=== PATIENT | female | born 1980 | race Caucasian/White ===

== ENCOUNTER 2019-02-12 06:50 | Day surgery (SDC) | payer BC ==
[2019-02-09 14:48] LABS: Urine Appearance CLOUDY; Urine Bilirubin NEGATIVE (NEG); Urine Blood NEGATIVE (NEG); Urine Color YELLOW; Urine Glucose NEGATIVE (NEG); Urine Protein NEGATIVE (NEG); Urine Specific Gravity 1.025 (1.005-1.030); Urine Urobilinogen 0.2 mg/dL (0.2-1.0)
[2019-02-09 14:50] LABS: Urine Microscopic Reflex NO UMIC
[2019-02-09 14:50] LABS: Absolute Lymphocytes (CBC) 1.7 K/uL (0.7-4.9); Hematocrit 41.5 % (36.0-45.0); Lymphocytes % 29.9 % (15.3-44.8); MPV 9.2 fL (7.6-11.3); RBC Red Blood Cell Count 4.84 M/uL (3.86-4.86)
[2019-02-12 07:11] LABS: Specific Gravity 1.015 (1.005-1.030)
[2019-02-12] MEDS ORDERED: Ringers Lactate 1,000 ML IV ONE ×3 (07:11→10:59)
[2019-02-12] MEDS ORDERED: CEFAZOLIN/SWI 2gm 2 GM/20 ML SYR ONE (07:11)
[2019-02-12] MEDS ORDERED: SCOPOLAMINE HYDROBROMIDE PATCH TD ONE (07:11)
[2019-02-12] MEDS ORDERED: PROPOFOL 200 MG/20 ML VIAL IV ONE (08:04)
[2019-02-12] MEDS ORDERED: MIDAZOLAM HCL 2 MG/2 ML INJ ONE (08:04)
[2019-02-12] MEDS ORDERED: ROCURONIUM 50 MG/5 ML VIAL IV ONE (08:04)
[2019-02-12] MEDS ORDERED: LIDOCAINE 2% MPF 5 ML VIAL ONE (08:04)
[2019-02-12] MEDS ORDERED: FENTANYL CITR 250 MCG/5 ML ONE (08:04)
[2019-02-12] MEDS ORDERED: dexAMETHasone 10 MG/ML VIAL ONE (08:04)
[2019-02-12] MEDS ORDERED: ONDANSETRON 4 MG/2 ML VIAL ONE ×2 (08:06→12:20)
[2019-02-12] MEDS ORDERED: BUPIVACAINE 0.25% PF 10 ML VIAL ONE ×2 (08:45→09:16)
[2019-02-12] MEDS ORDERED: KETOROLAC 30 MG/ML INJ ONE (11:07)
[2019-02-12] MEDS: HYDROMORPHONE HCL 1 MG/ML INJ ONE ×2 (12:16→12:47)
[2019-02-12] MEDS ORDERED: PROMETHAZINE 25 MG/ML VIAL ONE (14:36)
[2019-02-12 15:49] VITALS: TEMP 98.5
[2019-02-12] MEDS ORDERED: HYDROCODONE/APAP 5/325 MG TAB ONE (16:07)
[2019-02-12 17:18] VITALS: BP 100/58; O2SAT 99
--- NOTE | 2019-02-14 02:51 | OP ---
Date of Procedure: 02/12/2019 Surgeon: Maria Isabel Prieto MD Chief Security And Safety Officer: Karen Bridges. Preoperative Diagnoses: Cervical intraepithelial neoplasia-3; history of menorrhagia; status post ab lation; Asherman, and left hydrosalpinx. Postoperative Diagnoses: Cervical intraepithelial neoplasia-3; history of menorrhagia; status post a blation; Asherman, left hydrosalpinx; bilateral hematosalpinges; endometriosis. Anesthesia: General endotracheal. Specimens: Uterus, bilateral tubes, and endometriosis of the right lower quadrant. Other endometrio sis was included along with the uterine specimen. There was small amount of endometriosis left at th e right lateral posterior part of the cuff immediately lateral to the attachment of the uterosacral l igament. This was a difficult place for removal of this endometriosis. It was cauterized with the h elp of the LigaSure, not removed due to all the adhesions from her prior sections. Lysis of section adhesions. Procedure Performed: Total laparoscopic hysterectomy, bilateral salpingectomy, endometriosis treatme nt, lysis of bladder adhesions, which took an extensive amount of time, and cystoscopy. Findings: The uterus was adhered starting at the level of the tube on 1 side to the level of the rou nd ligament on opposite sides and the bladder adhesions were at multiple levels due to her 3 sections. This was most difficult part of the surgery and took more than half of the time of the en tire duration of the surgery. Endometriosis was present close to cuff on the lateral aspects of the posterior broad ligament, which included the uterus after excising them laterally and pulling the spe cimen medial and then in the right lower quadrant it was excised with the help of the scissors and Li gaSure completely from its base. Both ovaries were normal on cystoscopy. Both ureters were patent. No evidence of any trauma to the bladder. Both tubes had hematosalpinges. The patient was worked up for an abnormal Pap smear on colposcopy and ECC. She was found to have ALBAN -3, which is discrepant from her Pap smear. Discussed about the options of observation with followup Pap smear in 36 months versus cold knife cone, LEEP with top hat. All these were discussed with the patient as well as a hysterectomy. She has completed childbearing, went through an ablation for hea vy bleeding and pain. She had endometriosis removal in the past as well. Although patient is amenor rheic now and had no pain, she preferred to proceed with a hysterectomy. Description Of Procedure: After consenting her for this procedure, 2 g of Ancef was given in the pre op. Patient was taken back to the surgery and was taken to the OR, placed in supine fashion on the o perating table. After general anesthesia was given, she was placed in dorsal lithotomy position in A llen stirrups. Abdomen, vulva, vagina, and perineum were prepped and draped in a sterile fashion. F oley was placed to drain the bladder and attached to cysto tubing for retrograde filling. A large cu p uterine manipulator device was introduced into the uterine cavity, but I could advance it only to 5 .5 cm, which is probably only the lower part of the endometrial canal. However, due to her severe As matthieu syndrome, we were unable to advance it any further. This was left in place, cup fixed in plac e. 1 cm periumbilical incision was made with a scalpel using open laparoscopy technique. Fascia was inc ised, cut, tagged with 0 Vicryl sutures. Kaitlin was placed after directly entering into the peritone al cavity. Insufflation was done. Upper abdominal surface was completely unremarkable. Lower abdom inal surfaces were visualized, and there were hematosalpinges on both sides, left more than the right . So, plan was to remove both tubes starting in the mesosalpinx to the level of the hematosalpinx. Dissection was performed medially towards its cornual end. Utero-ovarian ligament was taken down. R ound ligament was taken down on the left side. Then, gently the peritoneum was opened up between the round ligament and the adhesions of the bladder. It was carefully taken down in a [id number] fash ion going slow at the level of the layers with push-spread technique making windows and cutting it al l the way down to the lateral aspect of the uterus. Then, posterior peritoneum was taken down to the left uterosacral and the broad ligament was already skeletonized by the time I had performed dissect ion. On the opposite side, similar dissection was performed to open up the lateral wall and taking t he proximal part of the tube with the uterine cavity along with the uterine body. Once the broad lig ament was entered posteriorly and brought to the right uterosacral anteriorly, careful dissection had to be performed back on the opposite side and taken down all the way to the level of the uterine ves sels and the broad ligament was skeletonized. Then, once I got into the lateral dissection plane, __ rest of the bladder was taken. The vessels were taken with the LigaSure and the basket tip pulled on both sides. Cardinal ligaments were taken down. Circumferential colpotomy with monopolar hook blade was performed. The specimens were retrieved through the vagina. Distal parts of both tub es were also removed and handed for permanent pathology. Then, 2-0 V-Loc suture was taken with the k not tied at the end. Then, incision closure was started at the right lateral aspect of the cuff. Cu ff closure was done in 2 layers, 1 was vaginal epithelial subepithelial layer including the collagen matrix and the first layer from [id number] and then imbricating the first line with the help of th e same 2-0 V-Loc suture going through the rectovaginal fascia, pubic cervical fascia posteriorly and anteriorly respectively. Entire closure was performed all the way and then backtracked 2 more suture s for rewind on the V-Loc. Once this was done, there was excellent hemostasis. The suture was cut v kristofer flush. Excellent support in closure. Uterosacrals were made sure that they were included back i n the closure. Then, both ovaries were healthy and vascular. Thorough irrigation and suction were p erformed. Shady for retraction of the bowel and this was released and there was no hematoma here. After all the trocars were pulled out, Marcaine was injected. Fascia at the umbi licus was closed with the help of a [id number] 0 Vicryl suture and then simple 0 Vicryl stitches . On the skin, suprapubic incision at fascial site closed with simple 3-0 Vicryl, and 4-0 Vicryl int errupted on the rest of the places. VCare and Alex were removed. A 17-Guinean sheath, 30-degree ari s, normal saline was used for distention and both ureteric orifices were well visualized. Strong jet s of urine from them. No foreign body and no damage to the bladder was noted at the dome and the are a of the trigone and above the level of the trigone. Then, bladder was drained out. Instrument, nee dle, and sponge counts were done and were correct at the end of the case. EBL 60. Patient tolerated the procedure well. GRACY/HUBERT Voice ID: [id number] Report ID: [id number]
== END 2019-02-12 17:00 | disposition home or self-care (01) ==
LOC: OR 06:50
PROVIDERS: ATTEND Obstetrics & Gynecology
PROC: 0UT74ZZ Resection of Bilateral Fallopian Tubes, Percutaneous Endoscopic Approach (ICD-10-PCS; 2019-02-12)
PROC: 0TNB4ZZ Release Bladder, Percutaneous Endoscopic Approach (ICD-10-PCS; 2019-02-12)
PROC: 0UB44ZZ Excision of Uterine Supporting Structure, Percutaneous Endoscopic Approach (ICD-10-PCS; 2019-02-12)
PROC: 0DBW4ZZ Excision of Peritoneum, Percutaneous Endoscopic Approach (ICD-10-PCS; 2019-02-12)
PROC: 0UT94ZZ Resection of Uterus, Percutaneous Endoscopic Approach (ICD-10-PCS; principal; 2019-02-12 08:00)
DX: D06.9 Carcinoma in situ of cervix, unspecified (principal); N70.11 Chronic salpingitis; N85.6 Intrauterine synechiae; N83.6 Hematosalpinx; N80.3 Endometriosis of pelvic peritoneum; N32.89 Other specified disorders of bladder; F32.9 Major depressive disorder, single episode, unspecified; R87.810 Cervical high risk human papillomavirus (HPV) DNA test positive; Z88.6 Allergy status to analgesic agent; Z88.8 Allergy status to other drugs, medicaments and biological substances; Z80.3 Family history of malignant neoplasm of breast; Z80.0 Family history of malignant neoplasm of digestive organs; Z82.3 Family history of stroke; Z83.3 Family history of diabetes mellitus
CPT/HCPCS: 58571; 53899; 58662; 85025; 36415; 86900; 86850; 81025; 86901; 88305; 88307; 81003; J2704; J2550; J2250; J3010; J1100; J1170; J0690; J7120 ×3; J2405 ×2

== ENCOUNTER 2020-08-22 09:19 | Emergency (ER) | payer BC ==
[2020-08-22 10:04] LABS: Urine Blood Negative (Negative); Urine Glucose Negative (Negative); Urine Protein Negative (Negative); Urine Specific Gravity >=1.030 (1.005-1.030); Urine pH 5.5 (5.0-7.0)
[2020-08-22 10:12] LABS: Absolute Lymphocytes (CBC) 1.4 K/uL (0.7-4.9); Basophils % 0.8 % (0-1.3); Hematocrit 39.9 % (36.0-45.0); Lymphocytes % 22.6 % (15.3-44.8); MPV 9.3 fL (7.6-11.3); RBC Red Blood Cell Count 4.72 M/uL (3.86-4.86)
[2020-08-22] MEDS ORDERED: NA CHLORIDE 0.9% 1,000 ML ONE (10:13)
[2020-08-22] MEDS ORDERED: ONDANSETRON 4 MG/2 ML VIAL ONE (10:13)
[2020-08-22] MEDS ORDERED: MORPHINE 4 MG/ML SYR ONE (10:13)
[2020-08-22 10:20] LABS: Albumin 3.5 g/dL (3.4-5.0); Bilirubin Direct 0.2 mg/dL (0-0.2); Bilirubin Total 0.8 mg/dL (0.2-1.0); Potassium 3.9 mmol/L (3.5-5.1); Protein, Total 6.9 g/dL (6.4-8.2)
[2020-08-22 10:33] LABS: Urine Bacteria <20 /HPF (<20); Urine RBC NONE SEEN /HPF (NONE SEEN)
[2020-08-22 10:33] LABS: Urine Specific Gravity/Preg >1.030 (1.005-1.030)
[2020-08-22 10:34] LABS: Urine Mucus LIGHT /HPF (NONE SEEN)
--- NOTE | 2020-08-22 10:54 | RAD REPORT ---
EXAM DESCRIPTION: CT - Abdomen Pelvis W Contrast - 08/22/2020 10:33 am CLINICAL HISTORY: Abdominal pain COMPARISON: none. TECHNIQUE: Computed axial tomography of the abdomen pelvis was obtained. 100 cc Isovue-300 was admin istered intravenously. Oral contrast was not requested which limits evaluation of bowel. All CT scans are performed using dose optimization technique as appropriate and may include automated exposure control or mA/KV adjustment according to patient size. FINDINGS: Fatty liver 1 centimeter splenic cyst. The pancreas and adrenals are unremarkable. Minimal renal cortical thinning. No hydronephrosis. Hysterectomy. No adnexal mass. No significant free fluid There is no evidence of diverticulitis. Small umbilical hernia IMPRESSION: No acute abnormality is displayed.
--- NOTE | 2020-08-22 11:23 | EDPHYS ---
Physician Documentation [facility] Name: Tiera Joshi Age: 40 yrs Sex: Female : 1980 Arrival Date: 08/22/2020 Time: 09: Bed 18 Private MD: Chase Nayak HPI: 08/22 10:22 This 40 yrs old Female presents to ER via Ambulatory with complaints of pm1 Abdominal Pain. 10:22 The patient presents with abdominal pain in the left lower quadrant. Onset: The pm1 symptoms/episode began/occurred 6 month(s) ago, and became worse yesterday. The symptoms do not radiate. Associated signs and symptoms: none. Pertinent negatives: nausea, vomiting, and diarrhea, chest pain, dysuria, fever, shortness of breath. The symptoms are described as sharp. Modifying factors: The symptoms are alleviated by nothing, the symptoms are aggravated by nothing. Severity of pain: in the emergency department the pain is actually worse. The patient has experienced similar episodes in the past, multiple times. Seen by her DOCK MANAGER and given control pills to help with endometriosis. Has had hysterectomy . 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 - Social history:: Smoking status: Patient reports the use of cigarette tobacco products, denies chronic smoking, but will smoke occasionally. ROS: 10:22 Constitutional: Negative for fever, chills, and weight loss, Cardiovascular: Negative pm1 for chest pain, palpitations, and edema, Respiratory: Negative for shortness of breath, cough, wheezing, and pleuritic chest pain. 10:22 Back: Negative for injury and pain, MS/Extremity: Negative for injury and deformity, Skin: Negative for injury, rash, and discoloration, Neuro: Negative for headache, weakness, numbness, tingling, and seizure. 10:22 : Negative for injury, bleeding, discharge, and swelling. 10:22 Abdomen/GI: Positive for abdominal pain, Negative for nausea, vomiting, and diarrhea, constipation. Exam: 10:22 Constitutional: This is a well developed, well nourished patient who is awake, alert, pm1 and in no acute distress. Head/Face: Normocephalic, atraumatic. 10:22 Back: No spinal tenderness. No costovertebral tenderness. Full range of motion. 10:22 Skin: Warm, dry with normal turgor. Normal color with no rashes, no lesions, and no evidence of cellulitis. MS/ Extremity: Pulses equal, no cyanosis. Neurovascular intact. Full, normal range of motion. 10:22 Cardiovascular: Exam negative for acute changes, Rate: normal, Rhythm: regular, Pulses: no pulse deficits are appreciated. 10:22 Respiratory: Exam negative for acute changes, respiratory distress, shortness of breath, Breath sounds: are clear throughout. 10:22 Abdomen/GI: Inspection: obese Palpation: soft, in all quadrants, mild abdominal tenderness, in the left lower quadrant. 10:22 Neuro: Orientation: is normal, Mentation: is normal, Motor: is normal, moves all fours. Vital Signs: 09:41 BP 137 / 81; Pulse 75; Resp 17 S; Temp 97.8(O); Pulse Ox 100% on R/A; Weight 99.79 kg jd3 (R); Height 5 ft. 3 in. (160.02 cm) (R); Pain 7/10; 10:08 BP 112 / 52; Pulse 58; Resp 17 S; Pulse Ox 100% on R/A; jd3 09:41 Body Mass Index 38.97 (99.79 kg, 160.02 cm) jd3 MDM: 09:26 Patient medically screened. pm1 11:22 Data reviewed: vital signs. Data interpreted: Pulse oximetry: on room air is 100 %. pm1 Interpretation: normal. Counseling: I had a detailed discussion with the patient and/or guardian regarding: the historical points, exam findings, and any diagnostic results supporting the discharge/admit diagnosis, lab results, radiology results, the need for outpatient follow up, for definitive care, an OB/Gyne specialist, to return to the emergency department if symptoms worsen or persist or if there are any questions or concerns that arise at home. 08/22 09:39 Order name: Basic Metabolic Panel pm1 08/22 09:39 Order name: CBC with Diff pm1 08/22 09:39 Order name: Hepatic Function; Complete Time: 10:22 pm1 08/22 09:39 Order name: Lipase; Complete Time: 10:22 pm1 08/22 09:39 Order name: Urine Microscopic Only; Complete Time: 10:52 pm1 08/22 09:40 Order name: Basic Metabolic Panel; Complete Time: 10:22 EDMS 08/22 09:39 Order name: IV Saline Lock; Complete Time: 09:51 pm1 08/22 09:39 Order name: CT Abd/Pelvis - IV Contrast Only; Complete Time: 10:55 pm1 08/22 09:40 Order name: CBC with Automated Diff; Complete Time: 10:17 EDMS 08/22 10:03 Order name: Urine --Ancillary (enter results); Complete Time: 10:52 bd 08/22 10:04 Order name: Urine Dipstick-Ancillary; Complete Time: 10:17 EDMS 08/22 09:39 Order name: Labs collected and sent; Complete Time: 09:51 pm1 08/22 09:39 Order name: Urine Dipstick-Ancillary (obtain specimen); Complete Time: 10:03 pm1 08/22 09:39 Order name: Urine Test (obtain specimen); Complete Time: 10:03 pm1 Administered Medications: 10:02 Drug: Zofran (Ondansetron) 4 mg Route: IVP; Site: right antecubital; jd3 10:03 Drug: NS 0.9% 1000 ml Route: IV; Rate: 1000 ml; Site: right antecubital; jd3 10:03 Drug: morphine 4 mg Route: IVP; Site: right antecubital; jd3 Disposition: 08/22/20 11:23 Discharged to Home. Impression: Unspecified abdominal pain. - Condition is Stable. - Discharge Instructions: Abdominal Pain, Adult. - Prescriptions for Tylenol- Codeine #3 300-30 mg Oral Tablet - take 2 tablets by ORAL route every 4-6 hours As needed; 20 tablet. - Medication Reconciliation Form, Thank You Letter, Antibiotic Education, Prescription Opioid Use form. - Follow up: Emergency Department; When: As needed; Reason: Worsening of condition. Follow up: Private Physician; When: 2 - 3 days; Reason: Recheck today's complaints, Continuance of care, Re-evaluation by your physician. - Problem is new. - Symptoms have improved. Addendum: 08/24/2020 06:39 Co-signature as Attending Physician, Chase Heaton MD I agree with the assessment and c de la fuente plan of care. Signatures: Dispatcher [employer] EDAK Chase Heaton MD MD cha Williams, Irene, RN RN iw Maury Key, TRANSCRIBING MACHINE MECHANIC TRANSCRIBING MACHINE MECHANIC pm1 Jas Montes RN RN jd3 Corrections: (The following items were deleted from the chart) 08/22 12:16 11:23 08/22/2020 11:23 Discharged to Home. Impression: Unspecified abdominal pain. iw Condition is Stable. Forms are Medication Reconciliation Form, Thank You Letter, Antibiotic Education, Prescription Opioid Use. Follow up: Emergency Department; When: As needed; Reason: Worsening of condition. Follow up: Private Physician; When: 2 - 3 days; Reason: Recheck today's complaints, Continuance of care, Re-evaluation by your physician. Problem is new. Symptoms have improved. pm1
--- NOTE | 2020-08-22 11:23 | ER ---
Nurse's Notes [facility] Name: Tiera Joshi Age: 40 yrs Sex: Female : 1980 Arrival Date: 08/22/2020 Time: 09:22 Bed 18 Private MD: Diagnosis: Unspecified abdominal pain Presentation: 08/22 09:30 Chief complaint: Patient states: hx of endometriosis , has had more intense pain to [facility] iw since last night. Coronavirus screen: At this time, the client does not indicate any symptoms associated with coronavirus-19. Ebola Screen: Patient negative for fever greater than or equal to 101.5 degrees Fahrenheit, and additional compatible Ebola Virus Disease symptoms Patient denies exposure to infectious person. Patient denies travel to an Ebola-affected area in the 21 days before illness onset. No symptoms or risks identified at this time. Initial Sepsis Screen: Does the patient meet any 2 criteria? No. Patient's initial sepsis screen is negative. Does the patient have a suspected source of infection? No. Patient's initial sepsis screen is negative. Risk Assessment: Do you want to hurt yourself or someone else? Patient reports no desire to harm self or others. Onset of symptoms was August 21, 2020. 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 - Social history:: Smoking status: Patient reports the use of cigarette tobacco products, denies chronic smoking, but will smoke occasionally. Screenin:44 Abuse screen: Denies threats or abuse. Nutritional screening: No deficits noted. jd3 Tuberculosis screening: No symptoms or risk factors identified. Fall Risk Ambulatory Aid- None/Bed Rest/Nurse Assist (0 pts). Gait- Normal/Bed Rest/Wheelchair (0 pts) Mental Status- Oriented to own ability (0 pts). Total Cao Fall Scale indicates No Risk (0-24 pts). Assessment: 09:42 General: Appears in no apparent distress. comfortable, Behavior is calm, cooperative, jd3 appropriate for age. Pain: Complains of pain in suprapubic area and left lower quadrant Quality of pain is described as crampy, tender. Neuro: Level of Consciousness is awake, alert, obeys commands, Oriented to person, place, time, situation. Cardiovascular: Denies chest pain, Capillary refill < 3 seconds Patient's skin is warm and dry. Respiratory: Airway is patent Respiratory effort is even, unlabored, Respiratory pattern is regular, symmetrical, Denies cough, shortness of breath. GI: Abdomen is round non-distended, Abd is soft X 4 quads Abdomen is tender to palpation in left lower quadrant Reports lower abdominal pain. : No signs and/or symptoms were reported regarding the genitourinary system. EENT: No signs and/or symptoms were reported regarding the EENT system. Derm: Skin is intact, Skin is dry, Skin is normal, Skin temperature is warm. Musculoskeletal: Circulation, motion, and sensation intact. Range of motion: intact in all extremities. 10:08 Reassessment: Patient appears in no apparent distress at this time. No changes from jd3 previously documented assessment. Patient and/or family updated on plan of care and expected duration. Pain level reassessed. Patient is alert, oriented x 3, equal unlabored respirations, skin warm/dry/pink. Vital Signs: 09:41 BP 137 / 81; Pulse 75; Resp 17 S; Temp 97.8(O); Pulse Ox 100% on R/A; Weight 99.79 kg jd3 (R); Height 5 ft. 3 in. (160.02 cm) (R); Pain 7/10; 10:08 BP 112 / 52; Pulse 58; Resp 17 S; Pulse Ox 100% on R/A; jd3 09:41 Body Mass Index 38.97 (99.79 kg, 160.02 cm) jd3 ED Course: 09:22 Patient arrived in ED. am2 09:26 Maury Key NP is PHCP. pm1 09:26 Chase Heaton MD is Attending Physician. pm1 09:27 Jas Montes RN is Primary Nurse. jd3 09:32 Triage completed. iw 09:41 Arm band placed on. jd3 09:44 Patient has correct armband on for positive identification. Bed in low position. Call jd3 light in reach. Side rails up X 1. Pulse ox on. NIBP on. 09:51 Inserted saline lock: 20 gauge in right antecubital area, using aseptic technique. jd3 Blood collected. 10:03 Urine Microscopic Only Sent. 5 10:04 CBC with Automated Diff Sent. 5 10:04 Basic Metabolic Panel Sent. 5 10:04 Lipase Sent. [facility] 10:04 Hepatic Function Sent. [facility] 10:04 Basic Metabolic Panel Sent. [facility] 10:04 CBC with Diff Sent. 5 10:05 Initial lab(s) drawn, by ED staff, sent to lab. Urine collected: clean catch specimen, [facility] clear. 10:33 CT Abd/Pelvis - IV Contrast Only In Process Unspecified. EDMS 12:15 No provider procedures requiring assistance completed. IV discontinued, intact, iw bleeding controlled, No redness/swelling at site. Pressure dressing applied. Administered Medications: 10:02 Drug: Zofran (Ondansetron) 4 mg Route: IVP; Site: right antecubital; jd3 10:03 Drug: NS 0.9% 1000 ml Route: IV; Rate: 1000 ml; Site: right antecubital; jd3 10:03 Drug: morphine 4 mg Route: IVP; Site: right antecubital; jd3 Outcome: 11:23 Discharge ordered by . pm1 12:15 Discharged to home ambulatory, with family. iw 12:15 Condition: good 12:15 Discharge instructions given to patient, family, Instructed on discharge instructions, follow up and referral plans. medication usage, Demonstrated understanding of instructions, follow-up care, medications, Prescriptions given X 1. 12:16 Patient left the ED. Signatures: Dispatcher [employer] Denise Tobias, RN RN iw Maury Key, EMANI BLUEPRINT TRACER pm1 Yesica Quintero Adrianna Pandey amJas Bolton RN RN jd3
[2020-08-22 13:06] VITALS: BP 112/52; O2SAT 100
== END 2020-08-22 12:16 | disposition home or self-care (01) ==
LOC: ER 09:19
DX: R10.32 Left lower quadrant pain (principal); F17.210 Nicotine dependence, cigarettes, uncomplicated
CPT/HCPCS: 85025; 80048; 36415; 81025; 80076; 83690; 74177; Q9967; J7030; J2405; 81003; 81015; 96374; 96375; 99284

== ENCOUNTER 2020-10-01 23:50 | Emergency (ER) | payer BC ==
--- OUTSIDE RECORDS SUMMARY | 2020-10-01 23:52 | XMS REPORT | Continuity of Care Document ---
:1980 Author Organization [facility] t Address [address] [place] [id number] Care Team Providers Name Role Phone Moses Samano Attending Clinician Benjy Ceron Attending Clinician Sergoye Admitting Clinician Problems Condition Condition Condition Status Onset Resolution Last Treating Co mments Source Name Details Category Date Date Treatment Clinician Date ELSY Diagnosis Active 2020-09-18 Memoria BILLING 09-18 02:45:00 l 2384 00:00: Morgan ELSY 00 BILLING 2384 Active 09/18/2020 [facility] STROKE Diagnosis Active 2020-09-18 Mem oria SYMPTOMS 09-18 02:58:00 l STROKE 00:00: Aladdin SYMPTOMS 00 Active 09/18/2020 [facility] Endometrio Problem Resolve 2020-09-30 Memoria sis d 01:39:34 l (disorder) Pepe n Endometrio sis (disorder) Resolved Problem 09/30/2020 [facility] Single Problem Active 2020-09-30 Memor ia epileptic 01:39:34 l seizure Single Aladdin (finding) epileptic seizure (finding) Active Problem 09/30/2020 [facility] Unspecifie Problem 2020-09-20 2020-09-20 Memoria d 09-18 21:12:05 21:12:05 l convulsion 17:00: Pepe n s Unspecifie 00 d convulsion s 09/18/2020 09/20/2020 [facility] Allergies, Adverse Reactions, Alerts This patient has no known allergies or adverse reactions. Social History Social Habit Start Date Stop Date Quantity Comments Source Social History 2020-09-27 2020-09-27 [facility] ermann 15:24:54 15:24:54 Smoking Status Start Date Stop Date Source Social History [facility] Medications Ordered Filled Start Stop Current Ordering Indication Dosage Frequency Signature Comments Components Source Medication Medication Date Date Medication? Clinician (SIG) Name Name Ibuprofen Yes 200 mg, Memor ia 09-27 PO, 0 l 18:20: Refill(s) Tylenol No 1,000 mg, Memor ia 09-18 Route: PO, l 10:16: ONCE, kg, Morgan 00 Start date: 09/18/20 5:16:00 CDT, Stop date: 09/18/20 5:16:00 CDT Iohexol No 100 mL, Memoria 09-18 Route: l 06:22: IVP, Drug Form: SOLN, kg, ONCALL, STAT, Start date: 09/18/20 1:22:00 CDT, Duration: 1 doses or times, Dose = 2.2ml/kg, Max dose = 100ml -- "To be infused by Radiology Staff ONLY" Saline No Notes: Memoria Flush 0.9% 09-18 (Same as: l 06:17: BD Morgan 00 Posiflush) Vital Signs Vital Name Observation Time Observation Value Comments Source Systolic (mm Hg) 2020-09-27 15:19:00 [facility] Aladdin Diastolic (mm Hg) 2020-09-27 15:19:00 [facility] Heart Rate 2020-09-27 15:19:00 [facility] Respitory Rate 2020-09-27 15:19:00 Nur[facility] al Morgan Height 2020-09-27 15:19:00 160.02 cm [facility] Weight 2020-09-27 15:19:00 [facility] BMI Calculated 2020-09-27 15:19:00 Memori al Aladdin Respitory Rate 2020-09-18 11:00:00 Memori al Morgan Systolic (mm Hg) 2020-09-18 11:00:00 [facility] rial Morgan Diastolic (mm Hg) 2020-09-18 11:00:00 Mem orial Morgan Respitory Rate 2020-09-18 09:00:00 Memori al Aladdin Systolic (mm Hg) 2020-09-18 09:00:00 [facility] rial Morgan Diastolic (mm Hg) 2020-09-18 09:00:00 Mem orial Morgan Respitory Rate 2020-09-18 07:15:00 Memori al Aladdin Systolic (mm Hg) 2020-09-18 07:15:00 [facility] rial Aladdin Diastolic (mm Hg) 2020-09-18 07:15:00 Mem orial Aladdin Heart Rate 2020-09-18 06:03:00 [facility] Procedures Procedure Date / Time Performed Performing Clinician [facility] e Hysterectomy [facility] D&C - Dilatation and [facility] rmann curettage Appendectomy [facility] Aladdin section [facility] Pepe n Encounters Start End Encounter Admission Attending Care Care Encounter Source Date/Time Date/Time Type Type Clinicians Facility Department ID 2020-09-27 2020-09-27 Outpatient BOBBI Samano [facility] [id number] 10:00:00 23:59:59 John 00 Moses 2020-09-18 2020-09-18 Outpatient Jie [facility] [id number] 00:48:24 06:51:00 Jalil 67 Benjy 2020-09-18 2020-09-18 Emergency E [facility] [id number] [facility] 00:48:00 00:48:00 2020-09-18 2020-09-18 Outpatient [facility] ALEJANDRA [id number] [facility] 00:00:00 00:00:00 Results Test Description Test Time Test Comments Results Result Comments Source ANEMIA STUDY 2020-09-28 404 [facility] hansen 13:35:00 CHEM PANEL 2020-09-28 11 [facility] Lyn nn 13:35:00 CHEM PANEL 2020-09-28 0.86 [facility] Lyn nn 13:35:00 CHEM PANEL 2020-09-28 85 [facility] Lyn nn 13:35:00 CHEM PANEL 2020-09-28 99 [facility] Lyn nn 13:35:00 ELECTROLYTES 2020-09-28 138 [facility] hansen 13:35:00 ELECTROLYTES 2020-09-28 4.1 [facility] hansen 13:35:00 ELECTROLYTES 2020-09-28 105 [facility] hansen 13:35:00 ELECTROLYTES 2020-09-28 25 [facility] Her hansen 13:35:00 HEMATOLOGY 2020-09-28 2 [facility] Lyn nn 13:35:00 IMMUNOLOGY 2020-09-18 08:00:00 Test Item Value Reference Range Interpretation Comme nts Hep Signal to Cut-Off (test code = Hep Signal to Cut-Off) 0.01 1 [facility] [id number] 08:00:00Negative *NA*(09/18/20 3:00 AM) [facility]ann[facility]ARDIAC [id number] 06:19:0093[facility] HermannCARDIAC [id number] 06:19:00<0.02[facility] HermannCHEM [id number] 06:19:00 104[facility] HermannCHEM RGMDT3075-94-60 06:19:0011[facility] HermannCHEM PANEL 2020-09-18 06:19:000.81[facility] HermannCHEM UJWNN4121-04-42 06:19:00498Sljdempx HermannCHEM KFIXA5949-87-16 06:19:003.5[facility] HermannCHEM VKAPT9858-09-25 06:19:30417Vxflubes HermannCHEM ZMZHB1481-06-28 06:19:0018[facility] HermannCHEM VJRQC7955-06-26 06:19:008.3[facility] HermannCHEM MDFLB9635-61-97 06:19:0014.5 [facility] HermannCHEM [id number] 06:19:0052[facility] HermannHEMATOLOGY 2020-09-18 06:19:008.8[facility] OzeeoxqYVJFNTTLEH6640-40-11 06:19:005.00[facility] ZpurnqrDWETETIBHY5756-83-84 06:19:0014.1[facility] EborwfbBNVHVIQDJI3612-30-78 06:19:0043.4[facility] MkpglidUENWVFAHQK7176-73-56 06:19:0086.7[facility] Aladdin AIJGJDVPLO7295-24-36 06:19:00 Test Item Value Reference Range Interpretation Comments MCH (test code = MCH) 28.3 pg 27.0-31.0 [facility] JweujxkAILGNXFVSC5007-05-53 06:19:0032.6[facility] HermannHEMATOLOGY 2020-09-18 06:19:0013.7[facility] XqlqcaqDMQYOVJKES3948-85-26 06:19:37868Djeabahn WndrzwwHMPWVJWSXS5054-83-63 06:19:008.7[facility] TxzhgqgJBRIKCDMLM6729-28-00 06:19:00 Test Item Value Reference Range Interpretation Comments PT (test code = PT) 12.7 s 12.0-14.7 Memorial EhaohnyUEEKVPHKNT6163-36-30 06:19:00 Test Item Value Reference Range Interpretation Comments INR (test code = INR) 0.96 1 0.85-1.17 Memorial OjqfcllDWRGJYFOSD3454-14-40 06:19:00 Test Item Value Reference Range Interpretation Comments PTT (test code = PTT) 22.4 s 22.9-35.8 Memorial ImkkmcvIWQXRQJFZE2227-11-55 06:19:0073.9[facility] HermannHEMATOLOGY 2020-09-18 06:19:0020.0[facility] JjzvhaqJIDBMMDOZE2165-81-11 06:19:005.1[facility] HnhuxjrWBMZVGEFUW8113-62-87 06:19:000.3[facility] QvsvnbmHGNAESYPYZ7056-58-78 06:19:000.7[facility] QtowafkXPYTTFUVVX8263-05-36 06:19:006.5[facility] Morgan RGLYEIHSUQ7550-72-36 06:19:001.8[facility] YyzghtjAAFGPBRIEJ0471-30-55 06:19:000.4 Memorial GhmgtikSZNMIDPJPG4893-60-05 06:19:000.1[facility] HermannTOXICOLOGY 2020-09-18 06:19:17739Egyqtkqb SqtadegZUTIREMCLZ0996-94-68 06:19:000.169[facility] Aladdin
[2020-10-02] MEDS ORDERED: METOCLOPRAMIDE 10 MG/2mL INJ ONE (02:16)
[2020-10-02] MEDS ORDERED: DIPHENHYDRAMINE 50 MG/ML VIAL ONE (02:16)
[2020-10-02] MEDS ORDERED: NA CHLORIDE 0.9% 1,000 ML ONE (02:16)
[2020-10-02 02:38] LABS: Absolute Lymphocytes (CBC) 1.7 K/uL (0.7-4.9); Basophils % 0.7 % (0-1.3); Hematocrit 41.9 % (36.0-45.0); Lymphocytes % 18.6 % (15.3-44.8); MPV 9.7 fL (7.6-11.3); RBC Red Blood Cell Count 4.91 M/uL (3.86-4.86)
[2020-10-02 02:43] LABS: Protime INR 0.94
[2020-10-02 02:53] LABS: ALT/SGPT 28 U/L (12-78); AST/SGOT 15 U/L (15-37); Albumin 3.6 g/dL (3.4-5.0); Alkaline Phosphatase 66 U/L (45-117); BUN Blood Urea Nitrogen 9 mg/dL (7-18); Bicarbonate 24 mmol/L (21-32); Bilirubin Direct < 0.1 mg/dL (0-0.2); Bilirubin Total 0.3 mg/dL (0.2-1.0); Glucose Level 117 mg/dL (74-106); Protein, Total 7.3 g/dL (6.4-8.2); Sodium Level 142 mmol/L (136-145)
[2020-10-02 04:26] LABS: Urine Blood Negative (Negative); Urine Glucose Negative (Negative); Urine Protein Negative (Negative); Urine Specific Gravity 1.015 (1.005-1.030)
--- NOTE | 2020-10-02 05:32 | EDPHYS ---
Physician Documentation [facility] Name: Tiera Joshi Age: 40 yrs Sex: Female : 1980 Arrival Date: 10/02/2020 Time: 00:25 Bed 23 Private MD: ED Physician John Carpio HPI: 10/02 02:18 This 40 yrs old Female presents to ER via Ambulatory with complaints of mh7 Doesn't Feel Right. 02:19 The patient complains of pain to the forehead. The patient describes the headache as mh7 intermittent, throbbing. Onset: The symptoms/episode began/occurred 3 day(s) ago. Associated signs and symptoms: Pertinent positives: dizziness, nausea, vomiting, Pertinent negatives: altered mental status, fever, malaise, neck stiffness, Photophobia rash, sinus congestion, sinus tenderness, vision changes, vision loss, weakness, vertigo. Severity of symptoms: At its worst the pain was moderate, 2 day(s) ago, in the emergency department the pain is unchanged. Headache History: The patient has had previous headaches and this one is similar to previous episodes. The symptoms are alleviated by nothing. the symptoms are aggravated by movement. 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 - Social history:: Smoking status: Patient denies any tobacco usage or history of. Patient uses alcohol, occasionally. ROS: 02:19 Constitutional: Negative for fever, chills, and weight loss, Eyes: Negative for injury, mh7 pain, redness, and discharge, ENT: Negative for injury, pain, and discharge, Neck: Negative for injury, pain, and swelling, Cardiovascular: Negative for chest pain, palpitations, and edema, Respiratory: Negative for shortness of breath, cough, wheezing, and pleuritic chest pain, Back: Negative for injury and pain, : Negative for injury, bleeding, discharge, and swelling, MS/Extremity: Negative for injury and deformity, Skin: Negative for injury, rash, and discoloration, Psych: Negative for depression, anxiety, suicide ideation, homicidal ideation, and hallucinations, Allergy/Immunology: Negative for hives, rash, and allergies, Endocrine: Negative for neck swelling, polydipsia, polyuria, polyphagia, and marked weight changes, Hematologic/Lymphatic: Negative for swollen nodes, abnormal bleeding, and unusual bruising. Exam: 02:19 Constitutional: This is a well developed, well nourished patient who is awake, alert, mh7 and in no acute distress. Head/Face: Normocephalic, atraumatic. Eyes: Pupils equal round and reactive to light, extra-ocular motions intact. Lids and lashes normal. Conjunctiva and sclera are non-icteric and not injected. Cornea within normal limits. Periorbital areas with no swelling, redness, or edema. Neck: Trachea midline, no thyromegaly or masses palpated, and no cervical lymphadenopathy. Supple, full range of motion without nuchal rigidity, or vertebral point tenderness. No Meningismus. Chest/axilla: Normal chest wall appearance and motion. Nontender with no deformity. No lesions are appreciated. Cardiovascular: Regular rate and rhythm with a normal S1 and S2. No gallops, murmurs, or rubs. Normal PMI, no JVD. No pulse deficits. Respiratory: Lungs have equal breath sounds bilaterally, clear to auscultation and percussion. No rales, rhonchi or wheezes noted. No increased work of breathing, no retractions or nasal flaring. Abdomen/GI: Soft, non-tender, with normal bowel sounds. No distension or tympany. No guarding or rebound. No evidence of tenderness throughout. Back: No spinal tenderness. No costovertebral tenderness. Full range of motion. Skin: Warm, dry with normal turgor. Normal color with no rashes, no lesions, and no evidence of cellulitis. MS/ Extremity: Pulses equal, no cyanosis. Neurovascular intact. Full, normal range of motion. Neuro: Awake and alert, GCS 15, oriented to person, place, time, and situation. Cranial nerves II-XII grossly intact. Motor strength 5/5 in all extremities. Sensory grossly intact. Cerebellar exam normal. Normal gait. Psych: Awake, alert, with orientation to person, place and time. Behavior, mood, and affect are within normal limits. Vital Signs: 01:14 BP 124 / 68; Pulse 86; Resp 16 S; Temp 98.4(O); Pulse Ox 99% on R/A; Weight 95.25 kg bb (R); Height 5 ft. 3 in. (160.02 cm) (R); Pain 8/10; 03:23 BP 112 / 61; Pulse 80; Resp 16 S; Pulse Ox 98% on R/A; bb 04:26 BP 126 / 43; Pulse 75; Resp 16 S; Pulse Ox 98% on R/A; bb 05:52 BP 102 / 60; Pulse 72; Resp 16 S; Temp 97.8(O); Pulse Ox 98% on R/A; Pain 2/10; bb 01:14 Body Mass Index 37.20 (95.25 kg, 160.02 cm) Aristides Coma Score: 05:28 Eye Response: spontaneous(4). Verbal Response: oriented(5). Motor Response: obeys [facility] commands(6). Total: 15. MDM: 05:28 Differential diagnosis: cluster headache, migraine, tension headache. Data reviewed: [facility] vital signs, nurses notes, lab test result(s), CBC, electrolytes. Data interpreted: Pulse oximetry: on room air is 98 %. Interpretation: normal. Counseling: I had a detailed discussion with the patient and/or guardian regarding: the historical points, exam findings, and any diagnostic results supporting the discharge/admit diagnosis, lab results, radiology results, the need for outpatient follow up. Response to treatment: the patient's symptoms have resolved after treatment, the patient's blood pressure is in an acceptable range, mental status has returned to baseline, the patient no longer shows bradycardia, the patient is not short of breath, the patient is not tachycardic, the patient's pain is gone, the patient's temperature has normalized. 05:30 Patient medically screened. [facility] 10/02 01:54 Order name: CBC with Diff [facility] 10/02 01:54 Order name: Basic Metabolic Panel [facility] 10/02 01:54 Order name: LFT's [facility] 10/02 01:54 Order name: Protime (+inr); Complete Time: 04: [facility] 10/02 01:54 Order name: Ptt, Activated; Complete Time: 04: [facility] 10/02 01:54 Order name: CBC with Automated Diff; Complete Time: 04:26 [facility] 10/02 01:54 Order name: Saline Lock; Complete Time: 02:15 [facility] 10/02 01:54 Order name: CT Head Brain wo Cont [facility] 10/02 01:54 Order name: Basic Metabolic Panel; Complete Time: 04:26 [facility] 10/02 01:54 Order name: Liver (Hepatic) Function; Complete Time: 04:26 [facility] 10/02 04:26 Order name: Urine Dipstick-Ancillary; Complete Time: 05:18 [facility] 10/02 01:55 Order name: Urine Dipstick-Ancillary (obtain specimen); Complete Time: 04: [facility] Administered Medications: 02:10 Drug: NS 0.9% 1000 ml Route: IV; Rate: 1000 ml; Site: right antecubital; bb 03:14 Follow up: IV Status: Completed infusion; IV Intake: 1000ml bb 02:10 Drug: Reglan (metoCLOPramide) 10 mg Route: IVP; Site: right antecubital; bb 03:14 Follow up: Response: No adverse reaction bb 02:15 Drug: Benadryl (diphenhydrAMINE) 50 mg Route: IVP; Site: right antecubital; bb 03:15 Follow up: Response: No adverse reaction bb Disposition: 10/02/20 05:30 Discharged to Home. Impression: Headache. - Condition is Stable. - Discharge Instructions: General Headache Without Cause. - Medication Reconciliation Form, Thank You Letter, Antibiotic Education, Prescription Opioid Use form. - Follow up: Private Physician; When: 1 - 2 days; Reason: Recheck today's complaints, Continuance of care, Re-evaluation by your physician. - Problem is an acute exacerbation. - Symptoms have improved. Signatures: Dispatcher [employer] Trang Shetty RN RN bb Holmes, Maurice, MD MD mh7 Corrections: (The following items were deleted from the chart) 05:53 05:30 10/02/2020 05:30 Discharged to Home. Impression: Headache. Condition is Stable. bb Forms are Medication Reconciliation Form, Thank You Letter, Antibiotic Education, Prescription Opioid Use. Follow up: Private Physician; When: 1 - 2 days; Reason: Recheck today's complaints, Continuance of care, Re-evaluation by your physician. Problem is an acute exacerbation. Symptoms have improved. mh7
--- NOTE | 2020-10-02 05:32 | ER ---
Nurse's Notes [facility] Name: Tiera Joshi Age: 40 yrs Sex: Female : 1980 Arrival Date: 10/02/2020 Time: 00:25 Bed 23 Private MD: Diagnosis: Headache Presentation: 10/02 01:14 Chief complaint: Patient states: she had a sudden onset of a seizure 2 weeks ago was bb life-flighted to [place] to r/o stroke and discharged she is following up with Dr Samano but the last few days has been feeling very off with a headache, vomiting, and feeling like her arms are "jittery". Coronavirus screen: At this time, the client does not indicate any symptoms associated with coronavirus-19. Ebola Screen: No symptoms or risks identified at this time. Initial Sepsis Screen: Does the patient meet any 2 criteria? No. Patient's initial sepsis screen is negative. Does the patient have a suspected source of infection? No. Patient's initial sepsis screen is negative. Risk Assessment: Do you want to hurt yourself or someone else? Patient reports no desire to harm self or others. Onset of symptoms was September 28, 2020. 01:14 Method Of Arrival: Ambulatory bb 01:14 Acuity: DANNY 3 bb EDITOR DICTIONARY: 01:18 LMP N/A - Hysterectomy bb Historical: - Allergies: :18 No Known Allergies; bb - Home Meds: 01:18 blisovi control [Active]; Celebrex Oral [Active]; bb - PMHx: 01:18 Endometrosis; seizure; bb - PSHx: 01:18 Hysterectomy; Appendectomy; bb - Immunization history:: Adult Immunizations up to date. - Social history:: Smoking status: Patient denies any tobacco usage or history of. Patient uses alcohol, occasionally. Screenin:18 Abuse screen: Denies threats or abuse. Nutritional screening: No deficits noted. bb Tuberculosis screening: No symptoms or risk factors identified. Fall Risk None identified. Assessment: 01:18 General: Appears in no apparent distress. uncomfortable, Behavior is calm, cooperative. bb Pain: Complains of pain in headache Pain currently is 8 out of 10 on a pain scale. Neuro: Level of Consciousness is awake, alert, obeys commands, Oriented to person, place, time, situation. Cardiovascular: Capillary refill < 3 seconds Patient's skin is warm and dry. Respiratory: Respiratory effort is even, unlabored, Respiratory pattern is regular. GI: Abdomen is round Reports vomiting. Derm: Skin is pink, warm \\T\\ dry. Musculoskeletal: Circulation, motion, and sensation intact. 03:22 Reassessment: Patient and/or family updated on plan of care and expected duration. Pain bb level reassessed. Patient is alert, oriented x 3, equal unlabored respirations, skin warm/dry/pink. awaiting diagnostic results. IV site intact, patent, no erythema or edema noted Patient states feeling better. 04:18 Reassessment: pt ambulated with steady gait to the bathroom urine sample collected. bb 05:52 Reassessment: Patient is alert, oriented x 3, equal unlabored respirations, skin bb warm/dry/pink. pt verbalized understanding of and agrees to plan of care discharge instructions given pt ambulated with steady gait to exit Patient states feeling better. Vital Signs: 01:14 BP 124 / 68; Pulse 86; Resp 16 S; Temp 98.4(O); Pulse Ox 99% on R/A; Weight 95.25 kg bb (R); Height 5 ft. 3 in. (160.02 cm) (R); Pain 8/10; 03:23 BP 112 / 61; Pulse 80; Resp 16 S; Pulse Ox 98% on R/A; bb 04:26 BP 126 / 43; Pulse 75; Resp 16 S; Pulse Ox 98% on R/A; bb 05:52 BP 102 / 60; Pulse 72; Resp 16 S; Temp 97.8(O); Pulse Ox 98% on R/A; Pain 2/10; bb 01:14 Body Mass Index 37.20 (95.25 kg, 160.02 cm) bb Aristides Coma Score: 05:28 Eye Response: spontaneous(4). Verbal Response: oriented(5). Motor Response: obeys mh7 commands(6). Total: 15. ED Course: 00:25 Patient arrived in ED. am4 01:14 John Carpio MD is Attending Physician. mh7 01:14 Trang Crump RN is Primary Nurse. bb 01:17 Triage completed. bb 01:18 Arm band placed on Patient placed in an exam room, on a stretcher, on pulse oximetry. bb Family accompanied patient. 01:18 Patient has correct armband on for positive identification. Bed in low position. Call bb light in reach. Adult w/ patient. Pulse ox on. NIBP on. Warm blanket given. 02:00 Initial lab(s) drawn, by me, sent to lab. Inserted saline lock: 20 gauge in right bb antecubital area, using aseptic technique. Blood collected. 03:22 CT Head Brain wo Cont In Process Unspecified. EDMS 04:20 Urine collected: clean catch specimen, clear. bb 05:53 No provider procedures requiring assistance completed. IV discontinued, intact, bb bleeding controlled, No redness/swelling at site. Pressure dressing applied. Administered Medications: 02:10 Drug: NS 0.9% 1000 ml Route: IV; Rate: 1000 ml; Site: right antecubital; bb 03:14 Follow up: IV Status: Completed infusion; IV Intake: 1000ml bb 02:10 Drug: Reglan (metoCLOPramide) 10 mg Route: IVP; Site: right antecubital; bb 03:14 Follow up: Response: No adverse reaction bb 02:15 Drug: Benadryl (diphenhydrAMINE) 50 mg Route: IVP; Site: right antecubital; bb 03:15 Follow up: Response: No adverse reaction bb Intake: 03:14 IV: 1000ml; Total: 1000ml. bb Outcome: 05:30 Discharge ordered by MD. gonzalez 05:53 Discharged to home ambulatory, with family. bb 05:53 Condition: stable 05:53 Discharge instructions given to patient, Instructed on discharge instructions, follow up and referral plans. Demonstrated understanding of instructions, follow-up care. 05:53 Patient left the ED. bb Signatures: Dispatcher [employer] Trang Shetty RN RN bb Holmes, Maurice, MD MD 7 Jennifer Quintero am4
[2020-10-02 06:10] VITALS: O2SAT 98
[2020-10-02 06:14] VITALS: BP 102/60; TEMP 97.8
--- NOTE | 2020-10-02 20:18 | RAD REPORT ---
EXAM DESCRIPTION: CT - Head Brain Wo Cont - 10/02/2020 6:14 am CLINICAL HISTORY: The patient is 40 years old and is Female; Headache;Dizziness TECHNIQUE: Axial computed tomography images of the head/brain without intravenous contrast. Sagitt al and coronal reformatted images were created and reviewed. This CT exam was performed using one o r more of the following dose reduction techniques: automated exposure control, adjustment of the mA and/or kV according to patient size, and/or use of iterative reconstruction technique. COMPARISON: No relevant prior studies available. FINDINGS: Brain: Unremarkable. No hemorrhage. No significant white matter disease. No edema. Ventricles: Unremarkable. No ventriculomegaly. Bones/joints: Unremarkable. No acute fracture. Soft tissues: Unremarkable. Sinuses: Unremarkable as visualized. Mastoid air cells: Unremarkable as visualized. No mastoid effusion. IMPRESSION: No acute intracranial abnormality. Electronically signed by: Salazar Mcginnis MD 10/02/2020 3:55 AM CDT Due to temporary technical issues with the PACS/Fluency reporting system, reports are being signed by the in house radiologists without review as a courtesy to insure prompt reporting. The interpreting radiologist is fully responsible for the content of the report.
== END 2020-10-02 05:53 | disposition home or self-care (01) ==
LOC: ER 23:50
DX: R51.9 Headache, unspecified (principal)
CPT/HCPCS: 85025; 80048; 36415; 85610; 80076; 85730; 81003; 70450; J2765; J1200; J7030; 96361; 96374; 96375; 99284

== ENCOUNTER 2021-02-25 17:13 | Emergency (ER) | payer BC ==
[2021-02-25 19:05] LABS: Urine Blood Negative (Negative); Urine Glucose Negative (Negative); Urine Protein Negative (Negative); Urine pH 5.5 (5.0-7.0)
[2021-02-25 19:18] LABS: Absolute Lymphocytes (CBC) 1.8 K/uL (0.7-4.9); Hematocrit 46.1 % (36.0-45.0); Lymphocytes % 23.5 % (15.3-44.8); MPV 8.7 fL (7.6-11.3); RBC Red Blood Cell Count 5.26 M/uL (3.86-4.86)
[2021-02-25 19:21] LABS: Protime INR 0.89
[2021-02-25 19:22] LABS: Barbiturates NEGATIVE (NEGATIVE); Benzodiazepines NEGATIVE (NEGATIVE); Cocaine NEGATIVE (NEGATIVE); METHAMPHETAM NEGATIVE (NEGATIVE); Methadone NEGATIVE (NEGATIVE); Opiates NEGATIVE (NEGATIVE); Phencyclidine NEGATIVE (NEGATIVE); THC Cannibis NEGATIVE (NEGATIVE)
[2021-02-25 19:41] LABS: ALT/SGPT 35 U/L (12-78); AST/SGOT 20 U/L (15-37); Alkaline Phosphatase 60 U/L (45-117); BUN Blood Urea Nitrogen 15 mg/dL (7-18); Bicarbonate 25 mmol/L (21-32); Bilirubin Direct < 0.1 mg/dL (0-0.2); Bilirubin Total 0.3 mg/dL (0.2-1.0); Glucose Level 107 mg/dL (74-106); Potassium 4.1 mmol/L (3.5-5.1); Protein, Total 7.9 g/dL (6.4-8.2); Sodium Level 140 mmol/L (136-145)
--- NOTE | 2021-02-25 20:17 | ER ---
Nurse's Notes [facility] Name: Tiera Joshi Age: 41 yrs Sex: Female : 1980 Arrival Date: 02/25/2021 Time: 17:14 Bed 15 Private MD: Diagnosis: Suicidal ideations Presentation: 02/25 18:07 Chief complaint: Patient states: "I can't take this anymore"; Reports family, life and lp1 health stressors; reports feelings of sadness, hx of depression; Plan to take pills to harm self. Coronavirus screen: At this time, the client does not indicate any symptoms associated with coronavirus-19. Ebola Screen: No symptoms or risks identified at this time. Risk Assessment:. Risk Assessment: Do you want to hurt yourself or someone else? Patient reports desire/thoughts of hurting themselves or someone else. Provider notified. Onset of symptoms was February 25, 2021. 18:07 Method Of Arrival: Ambulatory lp1 18:07 Acuity: DANNY 2 lp1 18:10 Note Prescribed Lexapro, has not taken medication due to her mother telling her that lp1 "it will not work". 18:13 Initial Sepsis Screen: Does the patient meet any 2 criteria? No. Patient's initial lp1 sepsis screen is negative. Does the patient have a suspected source of infection? No. Patient's initial sepsis screen is negative. Triage Assessment: 22:42 General: Appears comfortable, Behavior is calm, cooperative, anxious. 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 - Social history:: Smoking status: Patient denies any tobacco usage or history of. Patient uses alcohol, occasionally. Patient/guardian denies using street drugs. Screenin:11 Abuse screen: Denies threats or abuse. Denies injuries from another. Nutritional lp1 screening: No deficits noted. Tuberculosis screening: No symptoms or risk factors identified. Fall Risk None identified. Assessment: 19:23 Reassessment: report given to [facility]. [facility] 20:00 Reassessment: Maury Key ASSOCIATE CREATIVE DIRECTOR on phone for doc to doc with physician from [facility]. 20:00 Reassessment: Pt sitting up in stretcher with eyes open, RR is even and unlabored, bc5 speaking in clear and complete sentences at time. Pt is tearful but is able to answer questions appropriately. Pt reports feeling overwhelmed "more so" over the last 2 years, "I don't feel like I have been looked after or cared for and the whole Covid thing just added to my stress" Pt denies HI, V/A/T hallucinations. Reports wanting to "sometimes" "I would probably take a bunch of pills". Pt is calm and cooperative at this time. Pain: Denies pain. Neuro: No deficits noted. Cardiovascular: No deficits noted. Respiratory: No deficits noted. GI: No deficits noted. : No deficits noted. EENT: No deficits noted. Derm: No deficits noted. Musculoskeletal: No deficits noted. Psych: 18:14 [place] Suicide Severity Screening: In the past month, have you wished you were lp1 or wished you could go to sleep and not wake up? Patient responds "yes." Based off the client's responses additional C-SSRS screening is required. "In the past month, have you actually had any thoughts of killing yourself?" Patient responds "yes." "I feel like an inconvenience to everyone" "In your lifetime, have you ever done anything, started to do anything, or prepared to do anything to end your life?" Patient responds "no.". Subjective: Patient's mood is sad, Delusions are denied, Hallucinations are denied Having thoughts of suicide. Plan for suicide is ingesting pills. Objective: Patient is cooperative, Speech is normal, Affect is appropriate. 22:42 Interventions: Removed personal items and placed in bag. Patient placed in [facility] gown. Searched person for dangerous items. Urine collected and sent for urine drug test. Belonging list filled out. Safety Checks: Personal items have been removed. Visitors are present. Pt denies substance abuse. Commitment: Patient will be a voluntary commitment. Vital Signs: 18:13 BP 129 / 88; Pulse 86; Resp 18; Pulse Ox 100% on R/A; Weight 97.52 kg; Height 5 ft. 3 lp1 in. (160.02 cm); Pain 0/10; 20:09 BP 130 / 90; Pulse 75; Resp 17; Temp 98.5(O); Pulse Ox 100% ; Pain 0/10; bc5 22:43 BP 125 / 85; Pulse 85; Resp 14; Temp 98.4(O); Pulse Ox 100% on R/A; Pain 0/10; bc5 18:13 Body Mass Index 38.08 (97.52 kg, 160.02 cm) lp1 ED Course: 17:14 Patient arrived in ED. as 18:10 Triage completed. lp1 18:10 Arm band placed on right wrist. lp1 18:15 Safety checks: Items removed: yes. Door open/sign placed on door: yes. Family/friend mh5 present: yes. Family/friends encouraged to stay with patient. Sitter present: Yes. 18:20 [facility] Key [facility]. pm1 18:20 Chase Heaton MD is Attending Physician. pm1 18:44 called [facility] and spoke with Bernadette in intake/ faxed over patient records eb in attempt to transfer. 19:07 Urine --Ancillary (enter results) Sent. 5 19:07 Urine Dipstick-Ancillary Sent. 5 19:07 Basic Metabolic Panel Sent. 5 19:07 Acetaminophen Level Sent. mh5 19:07 Acetaminophen Sent. mh5 19:07 Basic Metabolic Panel Sent. mh5 19:08 Patient has correct armband on for positive identification. Placed in gown. Bed in low mh5 position. Side rails up X 1. Warm blanket given. 19:08 CBC with Diff Sent. 5 19:08 ETOH Level Sent. mh5 19:08 Hepatic Function Sent. 5 19:08 PT-INR Sent. 5 19:08 Ptt, Activated Sent. 5 19:08 Salicylate Sent. 5 19:08 Urine Drug Screen Sent. 5 19:09 Initial lab(s) drawn, by ED staff, sent to lab. Urine collected: clean catch specimen, [facility] clear, EKG done, by ED staff, reviewed by Chase Heaton MD. Inserted saline lock: 20 gauge in right forearm, using aseptic technique. Blood collected. 19:19 Magalie David, RN is Primary Nurse. 5 20:00 COVID-19 (Coronavirus) Document "Date of Onset" if Symptomatic Sent. 5 22:42 No provider procedures requiring assistance completed. IV discontinued, intact, bc5 bleeding controlled, No redness/swelling at site. Pressure dressing applied. 22:48 IV discontinued, Pressure dressing applied. 5 Administered Medications: No medications were administered Outcome: 20:16 ER care complete, transfer ordered by MD. pm1 23:01 Transferred by ground EMS to other acute care facility: [facility]. Transfer 5 form completed. 23:01 Condition: stable 23:02 Patient left the ED. 5 Signatures: Luz Marina Quintero Brenda, RN RN bb Kaylee Morris RN RN lp1 Maury Key NP ASSOCIATE CREATIVE DIRECTOR pm1 Yesica Quintero [facility] Bernadette Barnes Bella, RN RN 5 Corrections: (The following items were deleted from the chart) 18:15 18:13 Pulse 86bpm; Resp 18bpm; Pulse Ox 100% RA; 97.52 kg; Height 5 ft. 3 in.; BMI: lp1 38.0; Pain 0/10; lp1
--- NOTE | 2021-02-25 20:18 | EDPHYS ---
Physician Documentation [facility] Name: Tiera Joshi Age: 41 yrs Sex: Female : 1980 Arrival Date: 02/25/2021 Time: 17:14 Bed 15 Private MD: ED Physician Chase Heaton HPI: 02/25 18:46 This 41 yrs old Female presents to ER via Ambulatory with complaints of pm1 Suicidal Ideation. 18:46 The patient presents to the emergency department with suicide ideation, and the patient pm1 has a plan, to overdose with medications. Onset: The symptoms/episode began/occurred just prior to arrival. Past psychiatric history: Prior diagnosis: depression, Psychiatric medications include: Prescribed Lexapro 1 month ago by PCP. Patient has not taken the medication due to the influence of her mother who mentioned to her that she has taken this before without positive effect, the patient does not have a previous inpatient psychiatric history. Associated signs and symptoms: The patient has no apparent associated signs or symptoms. Severity of symptoms: in the emergency department the symptoms are unchanged. No prior thoughts of suicide, but reports depression for as long as she can remember. The patient has been recently seen by a physician: the patient's primary care provider, 1 month(s) ago, for apparently unrelated complaints, patient was seen for a routine check. 20:20 Patient reported last seizure in September of this year, Mother's day. Prior to that 18-19 pm1 years ago. Patient does not take any medications for seizure disorder. 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 - Social history:: Smoking status: Patient denies any tobacco usage or history of. Patient uses alcohol, occasionally. Patient/guardian denies using street drugs. ROS: 18:46 Constitutional: Negative for fever, chills, and weight loss, Cardiovascular: Negative pm1 for chest pain, palpitations, and edema, Respiratory: Negative for shortness of breath, cough, wheezing, and pleuritic chest pain, Abdomen/GI: Negative for abdominal pain, nausea, vomiting, diarrhea, and constipation, Neuro: Negative for headache, weakness, numbness, tingling, and seizure. 18:46 Psych: Positive for depression, suicidal ideation, Negative for homicidal ideation. 18:46 All other systems are negative. Exam: 18:46 Constitutional: This is a well developed, well nourished patient who is awake, alert, pm1 and in no acute distress. Head/Face: Normocephalic, atraumatic. 18:46 Skin: Warm, dry with normal turgor. Normal color with no rashes, no lesions, and no evidence of cellulitis. 18:46 Eyes: Exam is negative for acute changes, Extraocular movements: no acute changes, Conjunctiva: no acute changes, no injection. 18:46 ENT: Exam is negative for acute changes, Mouth: Lips: normal, moist, Oral mucosa: normal, pink and intact, moist. 18:46 Cardiovascular: Exam negative for acute changes, Rate: normal, Rhythm: regular, Pulses: no pulse deficits are appreciated. 18:46 Respiratory: Exam negative for acute changes, respiratory distress, shortness of breath. 18:46 Musculoskeletal/extremity: Exam is negative for acute changes, Extremities: all appear grossly normal, with no appreciated pain with palpation, ROM: no acute changes. 18:46 Neuro: Exam negative for acute changes, Orientation: is normal, Mentation: is normal, Motor: is normal, moves all fours. 18:46 Psych: Behavior/mood is depressed, Crying. Oriented to person, place, time, Patient having thoughts of suicide. Plan for suicide is Overdose on pills Delusions/hallucinations are not present. Vital Signs: 18:13 BP 129 / 88; Pulse 86; Resp 18; Pulse Ox 100% on R/A; Weight 97.52 kg; Height 5 ft. 3 lp1 in. (160.02 cm); Pain 0/10; 20:09 BP 130 / 90; Pulse 75; Resp 17; Temp 98.5(O); Pulse Ox 100% ; Pain 0/10; bc5 22:43 BP 125 / 85; Pulse 85; Resp 14; Temp 98.4(O); Pulse Ox 100% on R/A; Pain 0/10; bc5 18:13 Body Mass Index 38.08 (97.52 kg, 160.02 cm) lp1 MDM: 18:20 Patient medically screened. pm1 18:52 Data reviewed: vital signs. Data interpreted: Pulse oximetry: on room air is 100 %. pm1 Interpretation: normal. 20:15 Counseling: I had a detailed discussion with the patient and/or guardian regarding: the pm1 historical points, exam findings, and any diagnostic results supporting the discharge/admit diagnosis, lab results, radiology results, the need to transfer to another facility, [facility] does not immediately have the required specialist, Psychiatrist. 02/25 18:15 Order name: Acetaminophen pm1 02/25 18:15 Order name: Basic Metabolic Panel pm1 02/25 18:15 Order name: CBC with Diff; Complete Time: 19:45 pm1 02/25 18:15 Order name: ETOH Level; Complete Time: 20:02 pm1 02/25 18:15 Order name: Hepatic Function; Complete Time: 20:02 pm1 02/25 18:15 Order name: PT-INR; Complete Time: 19:45 pm1 02/25 18:15 Order name: Ptt, Activated; Complete Time: 19:45 pm1 02/25 18:15 Order name: Salicylate; Complete Time: 20:02 pm1 02/25 18:15 Order name: Urine Drug Screen; Complete Time: 19:45 pm1 02/25 18:15 Order name: Acetaminophen Level; Complete Time: 20:02 EDMS 02/25 18:15 Order name: Basic Metabolic Panel; Complete Time: 20:02 EDMS 02/25 19:05 Order name: Urine Dipstick-Ancillary EDAK 02/25 19:05 Order name: Urine --Ancillary (enter results); Complete Time: 20:20 eb 02/25 19:40 Order name: COVID-19 (Coronavirus) Document "Date of Onset" if Symptomatic bb 02/25 18:15 Order name: EKG; Complete Time: 18:15 pm1 02/25 18:15 Order name: EKG - Nurse/Tech; Complete Time: 19:07 pm1 02/25 18:15 Order name: IV Saline Lock; Complete Time: 19:07 pm1 02/25 18:15 Order name: Labs collected and sent; Complete Time: 19:07 pm1 02/25 18:15 Order name: Suicide Screening ([place]); Complete Time: 20:00 pm1 02/25 18:15 Order name: Urine Dipstick-Ancillary (obtain specimen); Complete Time: 19:08 pm1 02/25 19:52 Order name: SARS-COV-2 RT PCR; Complete Time: 21:02 EDMS Administered Medications: No medications were administered Disposition: 02/26 16:24 Co-signature as Attending Physician, Chase Heaton MD I agree with the assessment and jennifer plan of care. Disposition Summary: 02/25/21 20:16 Transfer Ordered Transfer Location: [facility] pm1 Reason: Specialty pm1 Condition: Stable pm1 Problem: new pm1 Symptoms: have improved pm1 Accepting Physician: (02/25/21 23:02) bc5 Diagnosis - Suicidal ideations pm1 Discharge Instructions: - Discharge Summary Sheet bc5 Forms: - Medication Reconciliation Form pm1 - SBAR form bc5 Signatures: Dispatcher [employer] EDMS Chaes Heaton MD MD cha Pena, Laura RN RN lp1 Maury Key, VETERINARY MEDICINE DOCTOR VETERINARY MEDICINE DOCTOR pm1 Magalie David RN RN bc5 Corrections: (The following items were deleted from the chart) 02/25 19:52 19:41 CORONAVIRUS ordered. EDAK EDMS 23:02 20:16 pm1 bc5
[2021-02-25 23:25] VITALS: O2SAT 100
[2021-02-25 23:28] VITALS: BP 125/85; TEMP 98.4
--- NOTE | 2021-02-27 09:01 | EKG ---
Test Date: 2021-02-25 Test Time: 19:01:48 Court Abstractor: JACOB MEASUREMENT RESULTS: Intervals: Rate: 71 MO: 166 QRSD: 80 QT: 400 QTc: 434 [place]: P: 68 MO: 166 QRS: 69 T: 56 INTERPRETIVE STATEMENTS: Normal sinus rhythm Low voltage QRS Borderline ECG No previous ECG available for comparison Electronically Signed On 02-27-21 08:57:33 CDT by Tommie Alberto
== END 2021-02-25 23:02 ==
LOC: ER 17:13
DX: R45.851 Suicidal ideations (principal); Z20.822 Contact with and (suspected) exposure to COVID-19
CPT/HCPCS: 93005; 85025; 80048; 36415; 80320; 80329 ×2; 81025; 85610; 80076; 85730; 81003; 80307; 99285; U0003